=== PATIENT | female | born 1945 | race Caucasian/White ===

== ENCOUNTER 2017-06-16 08:50 | Inpatient (IN) | payer MEDICARE ==
[~2017-06-16] VITALS: Ht 160 cm; Wt 59.1 kg
[~2017-06-16 08:50] MED LIST: ALPR-475 PO; FLUT16SP NAS; LEVO50TA5 PO; NAPROSYN; ZOFRAN
[2017-06-16] MEDS ORDERED: SODIUM CHLORIDE 0.9% 1,000 ML IV ONE (09:14)
[2017-06-16] MEDS ORDERED: FAMOTIDINE 20 MG/2 ML IVP ONE (09:30)
[2017-06-16] MEDS ORDERED: MAALOX/HYOSCYAMINE/LIDOCAINE 45 ML BTL PO ONE (09:30)
[2017-06-16] MEDS ORDERED: ONDANSETRON 2MG/ML, 2ML IVP ONE (09:30)
[2017-06-16] MEDS ORDERED: SODIUM CHLORIDE FLUSH 10ML SYR IVF ONE (09:30)
[2017-06-16] MEDS ORDERED: SODIUM CHLORIDE 0.9% 1,000ML IVBOLUS ONE (09:30)
[2017-06-16] MEDS ORDERED: MAALOX/HYOSCYAMINE/LIDOCAINE 45 ML BTL ONE (09:47)
[2017-06-16] MEDS ORDERED: FAMOTIDINE 20 MG/2 ML ONE (09:47)
[2017-06-16] MEDS ORDERED: ONDANSETRON 2MG/ML, 2ML ONE (09:47)
[2017-06-16 10:06] LABS: HEMATOCRIT 36.4 % (34.6-47.8); HEMOGLOBIN 12.3 g/dL (11.7-16.4); WHITE BLOOD COUNT 10.6 x10^3/uL (3.4-10)
[2017-06-16 10:19] LABS: ASPARTATE AMINO TRANSFERASE 16 U/L (15-37); BLOOD UREA NITROGEN 9 mg/dL (7-18)
[2017-06-16 10:23] LABS: IS PT STATUS REG ER OR PRE ER? YES
[2017-06-16] MEDS ORDERED: SODIUM CHLORIDE FLUSH 10ML SYR IVF PRN (11:00)
[2017-06-16] MEDS ORDERED: AZITHROMYCIN 500 MG in SODIUM CHLORIDE 0.9% 250 ML IVPB ONE (11:00)
[2017-06-16] MEDS ORDERED: CEFTRIAXONE PMX 1GM/50ML 50 ML IVPB ONE (11:00)
[2017-06-16] MEDS ORDERED: DEXL60CA2 PO (11:01)
[2017-06-16] MEDS ORDERED: METF500T4 PO (11:01)
[2017-06-16] MEDS ORDERED: CEFTRIAXONE PMX 1GM/50ML 50 ML ONE (12:11)
[2017-06-16] MEDS ORDERED: ACETAMINOPHEN 325 MG TABLET PO PRN ×2 (14:00→17:00)
[2017-06-16 14:58] VITALS: BP 128/67
[2017-06-16] MEDS ORDERED: ENALAPRILAT 1.25 MG/ML, 2ML IVPush PRN (17:00)
[2017-06-16] MEDS ORDERED: DOCUSATE 100 MG CAPSULE PO PRN (17:00)
[2017-06-16] MEDS ORDERED: BISACODYL 10 MG SUPP PR PRN (17:00)
[2017-06-16] MEDS ORDERED: morphine SULFATE 10 MG/ML, 1ML IVPush PRN (17:00)
[2017-06-16] MEDS ORDERED: POLYETHYLENE GLYCOL 17 GM PACKET PO PRN (17:00)
[2017-06-16] MEDS ORDERED: hydrALAzine 20 MG/ML, 1ML IVPush PRN (17:00)
[2017-06-16] MEDS: AMPICILLIN/SULBACTAM 3 GM in SODIUM CHLORIDE 0.9% 100 ML IV SCH (17:50)
[2017-06-16] MEDS: SODIUM CHLORIDE 0.9% 1,000 ML IV SCH (17:50)
[2017-06-16] MEDS: HEPARIN 5,000 UNITS/ML, 1ML SQ SCH (17:50)
[2017-06-16] MEDS: PANTOPRAZOLE 40 MG IV IVPush SCH (17:50)
[2017-06-16 18:31] VITALS: BP 123/51
[2017-06-16] MEDS: DOXYCYCLINE 100 MG in DEXTROSE 5% 250 ML IV SCH (18:38)
[2017-06-16] MEDS: metFORMIN 500 MG TABLET PO SCH (20:20)
[2017-06-16] MEDS: GUAIFENESIN/DM 200-20MG, 10ML UDC PO PRN (21:49)
[2017-06-16] MEDS: DIPHENHYDRAMINE 25 MG CAPSULE PO PRN (21:49)
[2017-06-17] MEDS: AMPICILLIN/SULBACTAM 3 GM in SODIUM CHLORIDE 0.9% 100 ML IV SCH ×4 (00:28→17:46)
[2017-06-17] MEDS: SODIUM CHLORIDE 0.9% 1,000 ML IV SCH ×2 (00:29→09:14)
[2017-06-17] MEDS: HEPARIN 5,000 UNITS/ML, 1ML SQ SCH ×3 (00:54→17:46)
[2017-06-17 00:58] VITALS: BP 106/67
[2017-06-17 05:20] LABS: HEMATOCRIT 32.1 % (34.6-47.8); HEMOGLOBIN 10.6 g/dL (11.7-16.4); WHITE BLOOD COUNT 10.4 x10^3/uL (3.4-10)
[2017-06-17 05:33] LABS: BLOOD UREA NITROGEN 7 mg/dL (7-18)
[2017-06-17 05:38] LABS: ASPARTATE AMINO TRANSFERASE 14 U/L (15-37)
[2017-06-17] MEDS: PANTOPRAZOLE 40 MG IV IVPush SCH (06:02)
[2017-06-17] MEDS: LEVOTHYROXINE 50 MCG TABLET PO SCH (06:02)
[2017-06-17] MEDS: DOXYCYCLINE 100 MG in DEXTROSE 5% 250 ML IV SCH ×2 (06:41→18:39)
[2017-06-17 07:28] VITALS: BP 107/48
[2017-06-17] MEDS: TEMPLATE NON-FORMULARY MED. (Dexlansoprazole** (Dexilant**) 60 MG) PO SCH (09:15)
[2017-06-17] MEDS: metFORMIN 500 MG TABLET PO SCH ×2 (09:15→20:32)
[2017-06-17] MEDS: OXYcodone IR 5MG TABLET PO PRN ×2 (09:16→13:43)
[2017-06-17] MEDS: FLUTICASONE NASAL SPRAY 16GM NAS SCH (12:46)
[2017-06-17 13:24] VITALS: BP 108/52
[2017-06-17] MEDS ORDERED: metroNIDAZOLE 500 MG TABLET PO SCH (13:30)
[2017-06-17] MEDS: metroNIDAZOLE 500 MG TABLET PO SCH ×2 (13:43→21:24)
[2017-06-17] MEDS: PANTOPROZOLE 40MG TABLET PO SCH (17:45)
[2017-06-17 19:03] VITALS: BP 131/60
[2017-06-17] MEDS: DIPHENHYDRAMINE 25 MG CAPSULE PO PRN (21:26)
[2017-06-18] MEDS: AMPICILLIN/SULBACTAM 3 GM in SODIUM CHLORIDE 0.9% 100 ML IV SCH ×3 (00:12→11:57)
[2017-06-18] MEDS: HEPARIN 5,000 UNITS/ML, 1ML SQ SCH ×3 (01:00→16:49)
[2017-06-18 01:49] VITALS: BP 109/60
[2017-06-18 05:17] LABS: HEMATOCRIT 31.5 % (34.6-47.8); HEMOGLOBIN 10.5 g/dL (11.7-16.4); WHITE BLOOD COUNT 7.8 x10^3/uL (3.4-10)
[2017-06-18 05:18] LABS: BLOOD UREA NITROGEN 4 mg/dL (7-18)
[2017-06-18] MEDS: LEVOTHYROXINE 50 MCG TABLET PO SCH (05:50)
[2017-06-18] MEDS: metroNIDAZOLE 500 MG TABLET PO SCH ×3 (05:50→22:18)
[2017-06-18] MEDS: OXYcodone IR 5MG TABLET PO PRN (06:00)
[2017-06-18] MEDS: DOXYCYCLINE 100 MG in DEXTROSE 5% 250 ML IV SCH ×2 (06:45→19:35)
[2017-06-18] MEDS: metFORMIN 500 MG TABLET PO SCH ×2 (08:37→20:27)
[2017-06-18] MEDS: TEMPLATE NON-FORMULARY MED. (Dexlansoprazole** (Dexilant**) 60 MG) PO SCH (08:37)
[2017-06-18] MEDS: FLUTICASONE NASAL SPRAY 16GM NAS SCH (08:37)
[2017-06-18] MEDS: PANTOPROZOLE 40MG TABLET PO SCH ×2 (08:37→16:49)
[2017-06-18 13:15] VITALS: BP 114/40
[2017-06-18] MEDS: SODIUM CHLORIDE 0.9% 1,000 ML IV SCH (14:27)
[2017-06-18] MEDS: CEFTRIAXONE PMX 1GM/50ML 50 ML IV SCH (15:08)
[2017-06-18] MEDS: LACTOBACILLUS CHEW TABLET PO SCH ×2 (16:49→22:18)
[2017-06-18] MEDS: SUCRALFATE 1 GM/10 ML UDC PO SCH ×2 (16:49→22:18)
[2017-06-18 19:51] VITALS: BP 121/56
[2017-06-18] MEDS ORDERED: OMNIPAQUE 350 MG/ML, 100ML BOTTLE ONE (20:00)
[2017-06-19] MEDS: DIPHENHYDRAMINE 25 MG CAPSULE PO PRN ×3 (00:41→21:59)
[2017-06-19] MEDS: HEPARIN 5,000 UNITS/ML, 1ML SQ SCH ×3 (00:49→17:45)
[2017-06-19 01:06] VITALS: BP 115/48
[2017-06-19 05:00] LABS: HEMATOCRIT 32.1 % (34.6-47.8); HEMOGLOBIN 10.7 g/dL (11.7-16.4); WHITE BLOOD COUNT 7.5 x10^3/uL (3.4-10)
[2017-06-19] MEDS: SODIUM CHLORIDE 0.9% 1,000 ML IV SCH ×2 (05:11→17:44)
[2017-06-19 05:12] LABS: BLOOD UREA NITROGEN 3 mg/dL (7-18)
[2017-06-19] MEDS: metroNIDAZOLE 500 MG TABLET PO SCH ×3 (05:59→21:59)
[2017-06-19] MEDS: LEVOTHYROXINE 50 MCG TABLET PO SCH (05:59)
[2017-06-19] MEDS: metFORMIN 500 MG TABLET PO SCH ×2 (07:24→19:09)
[2017-06-19] MEDS: SUCRALFATE 1 GM/10 ML UDC PO SCH ×4 (07:24→22:00)
[2017-06-19] MEDS: PANTOPROZOLE 40MG TABLET PO SCH ×2 (07:24→17:44)
[2017-06-19] MEDS: FLUTICASONE NASAL SPRAY 16GM NAS SCH (07:24)
[2017-06-19] MEDS: DOXYCYCLINE 100 MG in DEXTROSE 5% 250 ML IV SCH ×2 (07:24→19:50)
[2017-06-19] MEDS: LACTOBACILLUS CHEW TABLET PO SCH ×3 (07:33→21:59)
[2017-06-19] MEDS: ONDANSETRON 2MG/ML, 2ML IVPush PRN (07:33)
[2017-06-19 08:30] VITALS: BP 135/62
[2017-06-19] MEDS ORDERED: REGADENOSON 0.4 MG/5 ML SYRINGE ONE (08:50)
[2017-06-19 14:00] VITALS: BP 134/52
[2017-06-19] MEDS: CEFTRIAXONE PMX 1GM/50ML 50 ML IV SCH (14:08)
[2017-06-19] MEDS ORDERED: ACETAMINOPHEN 325 MG TABLET PO PRN (19:00)
[2017-06-19] MEDS ORDERED: BISACODYL 10 MG SUPP PR PRN (19:00)
[2017-06-19] MEDS ORDERED: ENALAPRILAT 1.25 MG/ML, 2ML IVPush PRN (19:00)
[2017-06-19] MEDS ORDERED: DOCUSATE 100 MG CAPSULE PO PRN (19:00)
[2017-06-19] MEDS ORDERED: POLYETHYLENE GLYCOL 17 GM PACKET PO PRN (19:00)
[2017-06-19] MEDS ORDERED: hydrALAzine 20 MG/ML, 1ML IVPush PRN (19:00)
[2017-06-19 19:54] VITALS: BP 138/64
[2017-06-19] MEDS: GUAIFENESIN/DM 200-20MG, 10ML UDC PO PRN (22:00)
[2017-06-20] MEDS: HEPARIN 5,000 UNITS/ML, 1ML SQ SCH ×4 (00:32→23:47)
[2017-06-20] MEDS: SODIUM CHLORIDE 0.9% 1,000 ML IV SCH ×3 (02:32→23:47)
[2017-06-20 02:34] VITALS: BP 142/60
[2017-06-20] MEDS: LEVOTHYROXINE 50 MCG TABLET PO SCH (05:55)
[2017-06-20] MEDS: metroNIDAZOLE 500 MG TABLET PO SCH ×3 (05:56→21:55)
[2017-06-20] MEDS: DOXYCYCLINE 100 MG in DEXTROSE 5% 250 ML IV SCH ×2 (07:54→20:01)
[2017-06-20] MEDS: SUCRALFATE 1 GM/10 ML UDC PO SCH ×4 (07:54→20:00)
[2017-06-20] MEDS: LACTOBACILLUS CHEW TABLET PO SCH ×3 (09:24→20:00)
[2017-06-20] MEDS: PANTOPROZOLE 40MG TABLET PO SCH ×2 (09:24→17:46)
[2017-06-20] MEDS: metFORMIN 500 MG TABLET PO SCH ×2 (09:24→20:00)
[2017-06-20] MEDS: ONDANSETRON 2MG/ML, 2ML IVPush PRN (09:28)
[2017-06-20 09:57] VITALS: BP 145/69
[2017-06-20] MEDS: FLUTICASONE NASAL SPRAY 16GM NAS SCH (11:02)
[2017-06-20] MEDS: CEFTRIAXONE PMX 1GM/50ML 50 ML IV SCH (14:19)
[2017-06-20 14:26] VITALS: BP 140/58
[2017-06-20] MEDS: FLUTICASONE/VILANTEROL 100-25MCG/INH INH SCH (17:50)
[2017-06-20 19:29] VITALS: BP 152/75
[2017-06-20] MEDS: DIPHENHYDRAMINE 25 MG CAPSULE PO PRN (22:51)
[2017-06-21 04:45] VITALS: BP 148/74
[2017-06-21] MEDS: LEVOTHYROXINE 50 MCG TABLET PO SCH (05:45)
[2017-06-21] MEDS: metroNIDAZOLE 500 MG TABLET PO SCH (05:45)
[2017-06-21] MEDS: HEPARIN 5,000 UNITS/ML, 1ML SQ SCH ×2 (08:05→16:09)
[2017-06-21] MEDS: DOXYCYCLINE 100 MG in DEXTROSE 5% 250 ML IV SCH ×2 (08:06→20:07)
[2017-06-21] MEDS: SUCRALFATE 1 GM/10 ML UDC PO SCH ×4 (08:06→20:07)
[2017-06-21 08:10] VITALS: BP 141/68
[2017-06-21] MEDS: FLUTICASONE/VILANTEROL 100-25MCG/INH INH SCH (08:47)
[2017-06-21] MEDS: FLUTICASONE NASAL SPRAY 16GM NAS SCH ×2 (08:48→09:00)
[2017-06-21] MEDS: PANTOPROZOLE 40MG TABLET PO SCH ×2 (08:48→17:51)
[2017-06-21] MEDS: metFORMIN 500 MG TABLET PO SCH ×2 (08:48→20:07)
[2017-06-21] MEDS: LACTOBACILLUS CHEW TABLET PO SCH ×3 (08:48→20:07)
[2017-06-21] MEDS: SODIUM CHLORIDE 0.9% 1,000 ML IV SCH (11:47)
[2017-06-21] MEDS: VANCOMYCIN 50 MG/ML ORAL SUSP PO SCH ×2 (14:00→20:07)
[2017-06-21 14:10] VITALS: BP 148/69
[2017-06-21] MEDS: CEFTRIAXONE PMX 1GM/50ML 50 ML IV SCH (14:20)
[2017-06-21 20:39] VITALS: BP 137/62
[2017-06-21] MEDS: DIPHENHYDRAMINE 25 MG CAPSULE PO PRN (21:50)
[2017-06-22] MEDS: HEPARIN 5,000 UNITS/ML, 1ML SQ SCH ×3 (01:00→16:40)
[2017-06-22] MEDS: VANCOMYCIN 50 MG/ML ORAL SUSP PO SCH ×4 (02:06→20:47)
[2017-06-22 05:00] LABS: HEMATOCRIT 32.2 % (34.6-47.8); HEMOGLOBIN 10.8 g/dL (11.7-16.4); WHITE BLOOD COUNT 7.6 x10^3/uL (3.4-10)
[2017-06-22 05:12] VITALS: BP 132/65
[2017-06-22 05:14] LABS: BLOOD UREA NITROGEN 3 mg/dL (7-18)
[2017-06-22] MEDS: LEVOTHYROXINE 50 MCG TABLET PO SCH (06:02)
[2017-06-22 08:16] VITALS: BP 140/67
[2017-06-22] MEDS: FLUTICASONE NASAL SPRAY 16GM NAS SCH (09:00)
[2017-06-22] MEDS: FLUTICASONE/VILANTEROL 100-25MCG/INH INH SCH (09:17)
[2017-06-22] MEDS: SUCRALFATE 1 GM/10 ML UDC PO SCH ×4 (09:18→20:47)
[2017-06-22] MEDS: PANTOPROZOLE 40MG TABLET PO SCH ×2 (09:19→16:35)
[2017-06-22] MEDS: metFORMIN 500 MG TABLET PO SCH ×2 (09:19→20:47)
[2017-06-22] MEDS: LACTOBACILLUS CHEW TABLET PO SCH ×3 (09:19→20:47)
[2017-06-22] MEDS: DOXYCYCLINE 100 MG in DEXTROSE 5% 250 ML IV SCH ×2 (09:20→20:00)
[2017-06-22] MEDS ORDERED: POTASSIUM CHLORIDE 40 MEQ in SODIUM CHLORIDE 0.9% 500 ML IV ONE (09:30)
[2017-06-22] MEDS ORDERED: MAGNESIUM SULFATE PMX 2GM/50ML 50 ML IV ONE (09:30)
[2017-06-22] MEDS: CEFTRIAXONE PMX 1GM/50ML 50 ML IV SCH (14:39)
[2017-06-22 14:50] VITALS: BP 146/64
[2017-06-22] MEDS ORDERED: GUAI5SYR PO (17:45)
[2017-06-22] MEDS ORDERED: SUCR1ORA5 PO (17:45)
[2017-06-22] MEDS ORDERED: DOXY100T10 PO (17:45)
[2017-06-22] MEDS ORDERED: CEFD300C37 PO (17:45)
[2017-06-22] MEDS ORDERED: ACID1TAB7 PO (17:45)
[2017-06-22] MEDS ORDERED: VANC1VIA3 PO (17:45)
[2017-06-22] MEDS ORDERED: FLUT1AER INH (17:45)
[2017-06-22] MEDS ORDERED: PANT40TA5 PO (17:45)
== END 2017-06-22 22:20 | disposition home or self-care (01) | DRG 177 ==
LOC: ED 09:20 → EDIP 10:48 → 3NE 13:05
PROVIDERS: ADMIT Internal Medicine; ATTEND Internal Medicine
DX: J69.0 Pneumonitis due to inhalation of food and vomit (principal); N17.0 Acute kidney failure with tubular necrosis; A04.7 Enterocolitis due to Clostridium difficile; J98.11 Atelectasis; E11.9 Type 2 diabetes mellitus without complications; K76.0 Fatty (change of) liver, not elsewhere classified; K21.9 Gastro-esophageal reflux disease without esophagitis; E03.9 Hypothyroidism, unspecified; F32.9 Major depressive disorder, single episode, unspecified; K57.30 Diverticulosis of large intestine without perforation or abscess without bleeding; Z79.4 Long term (current) use of insulin; Z82.3 Family history of stroke; Z82.49 Family history of ischemic heart disease and other diseases of the circulatory system; Z90.49 Acquired absence of other specified parts of digestive tract; Z91.5 Personal history of self-harm; Z88.2 Allergy status to sulfonamides
CPT/HCPCS: 36415; 74177; 80048; 80053; 80061; 81003; 83036; 83605; 83735; 83880; 84100; 84145; 84439; 84443; 84484; 85025; 87040; 87150; 87324; 87493; 93005; 96361; 96365; 96366; 96375; J0295; J0696; J1644; J2405; J2785; J3370; J3480; J7060; Q9967; C9113; J3475; J7030; J7040; Q0163; S0028

== ENCOUNTER → 2019-04-18 | Outpatient (CLI) | payer MEDICARE ==
[~2019-04-18] MED LIST changes: +ACID1TAB7 PO; +CEFD300C37 PO; +DEXL60CA2 PO; +DOXY100T10 PO; -FLUT16SP NAS; +FLUT16SP24 NAS; +FLUT1AER INH; +GUAI5SYR PO; +METF500T17 PO; +PANT40TA5 PO; +SUCR1ORA5 PO; +VANC1VIA3 PO
== END | disposition home or self-care (01) ==
LOC: RAD 08:14
PROVIDERS: ATTEND Nurse Practitioner Family
DX: R10.10 Upper abdominal pain, unspecified (principal); R10.30 Lower abdominal pain, unspecified; R19.4 Change in bowel habit; R11.0 Nausea; R19.7 Diarrhea, unspecified
CPT/HCPCS: 74245

== ENCOUNTER 2019-05-31 10:49 | Outpatient (CLI) | payer MEDICARE ==
[~2019-05-31 10:49] MED LIST changes: -ALPR-475 PO; +ALPR0.5T7 PO
[2019-06-17] MEDS ORDERED: TEMA15CA PO (09:09)
[2019-06-17] MEDS ORDERED: GEMF600T8 PO (09:09)
[2019-06-19] MEDS ORDERED: SULF1TAB23 PO (11:44)
== END 2019-05-31 23:59 | disposition home or self-care (01) ==
LOC: PETCFH 10:49
PROVIDERS: ATTEND Nurse Practitioner Family
DX: K30 Functional dyspepsia (principal)
CPT/HCPCS: 78264; A9541

== ENCOUNTER 2019-06-17 07:49 | Inpatient (IN) | payer MEDICARE ==
[~2019-06-17] VITALS: Ht 160 cm; Wt 62.9 kg
[2019-06-19 12:40] VITALS: BP 145/73
== END 2019-06-19 17:20 | disposition home or self-care (01) | DRG 872 ==
LOC: ED 10:25 → EDIP 10:49 → 4NOR 15:09
PROVIDERS: ADMIT Hospitalist; ATTEND Hospitalist
DX: A41.9 Sepsis, unspecified organism (principal); E87.0 Hyperosmolality and hypernatremia; N10 Acute pyelonephritis; E87.1 Hypo-osmolality and hyponatremia; B96.20 Unspecified Escherichia coli [E. coli] as the cause of diseases classified elsewhere; D64.9 Anemia, unspecified; E03.9 Hypothyroidism, unspecified; E83.42 Hypomagnesemia; E83.52 Hypercalcemia; E86.0 Dehydration; K21.9 Gastro-esophageal reflux disease without esophagitis; R65.20 Severe sepsis without septic shock; E11.43 Type 2 diabetes mellitus with diabetic autonomic (poly)neuropathy; K31.84 Gastroparesis; Z16.20 Resistance to unspecified antibiotic; Z82.3 Family history of stroke; Z87.891 Personal history of nicotine dependence; Z90.49 Acquired absence of other specified parts of digestive tract
CPT/HCPCS: 36415; 74176; 80048; 80053; 81001; 82040; 82962; 83605; 83735; 84100; 84145; 84439; 84443; 85025; 87040; 87077; 87086; 87186; 96361; 96365; 96375; G0378; J0696; J1644; J1885; J2405; C9113; J2270; J7030

== ENCOUNTER 2021-02-10 11:00 | Emergency (ER) | payer MEDICARE ==
[~2021-02-10] VITALS: Ht 160 cm; Wt 54.5 kg
[~2021-02-10 11:00] MED LIST changes: -DOXY100T10 PO; +DOXY100T23 PO; +GEMF-31 PO; -PANT40TA5 PO; +PANT40TA6 PO; +SULF1TAB23 PO; +TEMA15CA PO
[2021-02-10] MEDS ORDERED: FAMOTIDINE 20 MG/2 ML IVPush ONE (11:30)
[2021-02-10] MEDS ORDERED: MORPHINE SULFATE 4 MG/ML, 1ML IVPush PRN (11:30)
[2021-02-10] MEDS ORDERED: SODIUM CHLORIDE 0.9% 1,000ML IVBOLUS ONE (11:30)
[2021-02-10] MEDS ORDERED: SODIUM CHLORIDE FLUSH 10ML SYR IVF ONE (11:30)
[2021-02-10] MEDS ORDERED: ONDANSETRON 2MG/ML, 2ML IVPush ONE (11:30)
--- NOTE | 2021-02-10 11:34 | NUR ---
AMBULATORY TO STONE BR W/ STEADY GAIT
--- NOTE | 2021-02-10 11:48 | NUR ---
SCANT AMOUNT VOIDED URINE PROVIDED. C/O INTERMITTENT LT FLANK AND LLQ PAIN & NAUSEA X 5 DAYS. DENIES PAIN/BURNING W/ URINATION, VOMITING. TOOK EXCEDRIN 0730 TODAY. ORAL INTAKE: WATER TODAY.
[2021-02-10 11:52] LABS: BASOPHILS % (AUTO) 1 % (0-1); EOSINOPHILS % (AUTO) 2 % (1-7); LYMPHOCYTES % (AUTO) 42 % (22-44); MEAN CORPUSCULAR HEMOGLOBIN 32.2 pg (27.0-34.8); MEAN PLATELET VOLUME 9.1 fL (7.4-10.4); MONOCYTES % (AUTO) 9 % (2-9); NEUTROPHILS % (AUTO) 46 % (42-75); PLATELET COUNT 261 x10^3/uL (130-400); RED BLOOD COUNT 3.91 x10^6/uL (3.82-5.3); RED CELL DISTRIBUTION WIDTH 13.9 % (9.6-15.2)
[2021-02-10 12:00] LABS: ALANINE AMINOTRANSFERASE 17 U/L (12-78); ALBUMIN 3.9 g/dL (3.4-5.0); CALCIUM 9.6 mg/dL (8.5-10.1); CREATININE 1.16 mg/dL (0.55-1.02)
[2021-02-10 12:04] LABS: MD NO
[2021-02-10 12:10] LABS: CHLORIDE 112 mmol/L (98-107)
[2021-02-10 12:13] LABS: ALKALINE PHOSPHATASE 52 U/L (45-117); BILIRUBIN,TOTAL 0.3 mg/dL (0.2-1.0); TOTAL PROTEIN 7.3 g/dL (6.4-8.2)
[2021-02-10 12:16] LABS: ANION GAP 7 mmol/L (5-15)
[2021-02-10] MEDS ORDERED: FAMOTIDINE 20 MG/2 ML ONE (12:26)
[2021-02-10] MEDS ORDERED: ONDANSETRON 2MG/ML, 2ML ONE (12:26)
[2021-02-10] MEDS ORDERED: MORPHINE SULFATE 4 MG/ML, 1ML ONE (12:26)
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
--- NOTE | 2021-02-10 12:37 | NUR ---
CT DELAY; ONE ROOM DOING CODE NEURO; OTHER ROOM COVID PATIENT
[2021-02-10 13:07] LABS: MICROSCOPIC NOT IND
[2021-02-10] MEDS ORDERED: OMNIPAQUE 350 MG/ML, 100ML BOTTLE ONE (13:22)
[2021-02-10 14:16] VITALS: BP 106/41
--- NOTE | 2021-02-10 14:17 | NUR ---
PT RESTING ON GURNEY. NS DC'D EARLIER PER CT. PT REPORTS INCREASE IN PAIN. WILL CONSULT PROVIDER.
--- NOTE | 2021-02-10 15:00 | NUR ---
PT DC'D PER DANIELE VENCES
[2021-02-10] MEDS ORDERED: PRAV40TA2 PO (15:19)
[2021-02-10] MEDS ORDERED: TEMA30CA PO (15:19)
[2021-02-10] MEDS ORDERED: DIABETES (15:19)
[2021-02-10] MEDS ORDERED: PIOG30TA68 PO (15:19)
== END 2021-02-10 15:21 | disposition home or self-care (01) ==
LOC: ED 11:16
DX: K59.00 Constipation, unspecified (principal); R10.33 Periumbilical pain; R10.32 Left lower quadrant pain; R94.31 Abnormal electrocardiogram [ECG] [EKG]; E11.9 Type 2 diabetes mellitus without complications; K21.9 Gastro-esophageal reflux disease without esophagitis; Z90.89 Acquired absence of other organs; Z90.49 Acquired absence of other specified parts of digestive tract; Z86.39 Personal history of other endocrine, nutritional and metabolic disease; Z87.891 Personal history of nicotine dependence
CPT/HCPCS: 36415; 74177; 80053; 81003; 83690; 85025; 93005; 96361; 96374; 96375; 99285; J2270; J2405; J7030; Q9967

== ENCOUNTER 2021-02-16 09:08 | Emergency (ER) | payer MEDICARE ==
[~2021-02-16 09:08] MED LIST changes: +DIABETES; +PIOG30TA68 PO; +PRAV40TA2 PO; +TEMA30CA PO
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
--- NOTE | 2021-02-16 09:50 | NUR ---
pt amb to br and back to room with steady gait. urine cup given. pt provided small amount of urine sample. this rn walked to lab for ua.
[2021-02-16] MEDS ORDERED: KETOROLAC 30 MG/1 ML ONE (09:52)
[2021-02-16] MEDS ORDERED: MORPHINE SULFATE 4 MG/ML, 1ML ONE (09:52)
[2021-02-16 09:56] LABS: BASOPHILS % (AUTO) 1 % (0-1); EOSINOPHILS % (AUTO) 2 % (1-7); LYMPHOCYTES % (AUTO) 43 % (22-44); MEAN CORPUSCULAR HEMOGLOBIN 32.1 pg (27.0-34.8); MEAN CORPUSCULAR HGB CONC 32.8 g/dL (32.4-35.8); MEAN PLATELET VOLUME 8.9 fL (7.4-10.4); MONOCYTES % (AUTO) 10 % (2-9); NEUTROPHILS % (AUTO) 44 % (42-75); PLATELET COUNT 273 x10^3/uL (130-400); RED CELL DISTRIBUTION WIDTH 14.2 % (9.6-15.2)
[2021-02-16 09:57] LABS: MD NO
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
[2021-02-16] MEDS ORDERED: SODIUM CHLORIDE FLUSH 10ML SYR IVF ONE (10:00)
[2021-02-16] MEDS ORDERED: KETOROLAC 30 MG/1 ML IVPush ONE (10:00)
[2021-02-16] MEDS ORDERED: MORPHINE SULFATE 4 MG/ML, 1ML IVPush PRN (10:00)
[2021-02-16] MEDS ORDERED: ONDANSETRON 2MG/ML, 2ML ONE (10:02)
[2021-02-16 10:06] LABS: ALBUMIN 3.5 g/dL (3.4-5.0); ANION GAP 8 mmol/L (5-15); CALCIUM 8.7 mg/dL (8.5-10.1); CHLORIDE 113 mmol/L (98-107); CREATININE 0.98 mg/dL (0.55-1.02)
[2021-02-16 10:26] LABS: MICROSCOPIC NOT IND
[2021-02-16] MEDS ORDERED: ONDANSETRON 2MG/ML, 2ML IVPush ONE (10:30)
[2021-02-16] MEDS ORDERED: SODIUM CHLORIDE 0.9% 1,000ML IVBOLUS ONE (10:30)
--- NOTE | 2021-02-16 10:36 | NUR ---
NS INFUSING AT THIS TIME.
[2021-02-16 11:47] VITALS: BP 142/50
== END 2021-02-16 12:47 | disposition home or self-care (01) ==
LOC: ED 09:56
DX: B02.9 Zoster without complications (principal); R21 Rash and other nonspecific skin eruption; R11.0 Nausea; E11.9 Type 2 diabetes mellitus without complications; K21.9 Gastro-esophageal reflux disease without esophagitis; Z86.39 Personal history of other endocrine, nutritional and metabolic disease
CPT/HCPCS: 36415; 80048; 81003; 82040; 85025; 96361; 96374; 96375; 99284; J1885; J2270; J2405; J7030